=== PATIENT | female | born 1960 | race Caucasian/White ===

== ENCOUNTER 2017-02-04 13:18 | Emergency (ER) | payer BC ==
[~2017-02-04] VITALS: Ht 160 cm; Wt 56.0 kg
[2017-02-04 13:21] VITALS: Ht 160 cm; Wt 56.0 kg
[2017-02-04] MEDS ORDERED: FER325 PO ×2 (13:42→13:46)
[2017-02-04] MEDS ORDERED: SILD20TA PO (13:46)
[2017-02-04] MEDS ORDERED: TREP1.743 INHALATION (13:46)
[2017-02-04] MEDS ORDERED: MACI10TA PO (13:46)
[2017-02-04] MEDS ORDERED: DIGO250T16 PO (13:46)
[2017-02-04] MEDS ORDERED: PRAV40TA76 PO (13:46)
[2017-02-04] MEDS ORDERED: LISI2.5T59 PO (13:46)
[2017-02-04] MEDS ORDERED: APIX5TAB PO (13:46)
[2017-02-04] MEDS ORDERED: FURO40TA4 PO (13:46)
[2017-02-04] MEDS ORDERED: SUCR1TAB56 PO (13:46)
[2017-02-04] MEDS ORDERED: ASPI-664 PO (13:46)
[2017-02-04 13:47] LABS: ADD SCAN DIFF NO; BASOPHILS % 0.4 % (0.0-2.0); EOSINOPHILS % 0.7 % (0.0-7.0); HEMATOCRIT 37.4 % (37.0-47.0); HEMOGLOBIN 12.1 g/dl (12.0-16.0); LYMPHOCYTES # 1.6 10^3/ul (0.8-2.9); MEAN CORPUSCULAR HEMOGLOBIN 25.5 pg (29.0-33.0); MEAN CORPUSCULAR HGB CONC 32.4 g/dl (32.0-37.0); MEAN CORPUSCULAR VOLUME 78.9 fl (82.0-101.0); MEAN PLATELET VOLUME 9.8 fl (7.4-10.4); MONOCYTE # 0.4 10^3/ul (0.3-0.9); MONOCYTES % 6.5 % (0.0-11.0); NEUTROPHIL # 3.5 10^3/ul (1.6-7.5); NEUTROPHILS % 63.3 % (39.0-77.0); PLATELET COUNT 313 10^3/UL (140-415); RED BLOOD COUNT 4.74 10^6/ul (4.20-5.40); RED CELL DISTRIBUTION WIDTH 15.6 % (11.5-14.5); WHITE BLOOD COUNT 5.5 10^3/ul (4.8-10.8)
--- NOTE | 2017-02-04 13:57 | ERA ---
ER Documentation Chief Complaint Date/Time DATE: 02/04/17 TIME: 13:55 Chief Complaint bib [id number] c/o cp and abd pain with sob denies n/v/d HPI 56-year-old female. Divehi speaking, and wheel loader operator used on the phone. The patient verbalizes shortness of breath, lightheadedness and dizziness. Patient states that she was recently hospitalized at [facility]. She has paperwork that suggests she was admitted for A. fib with pulmonary hypertension. The patient describes persistent symptoms and was just discharged proximally 1 week ago. She denies any chest pain, no pleuritic pain , it was noted that that she has abdominal pain but she denies this currently. She is feeling somewhat anxious and had paresthesias to bilateral upper extremities. These are resolved. Remainder of HPI is somewhat limited given language barrier. ROS All systems reviewed and are negative except as per history of present illness. Medications Home Meds Reported Medications Ferrous Sulfate* (Ferrous Sulfate*) 325 Mg Tabec, 325 MG PO DAILY, TAB 02/04/17 Treprostinil (Tyvaso) 1.74 Mg/2.9 Ml Ampul.neb, 3 INH INHALATION QID, EA 02/04/17 Pravastatin Sodium* (Pravastatin Sodium*) 40 Mg Tablet, 40 MG PO HS, TAB 02/04/17 Aspirin* (Aspirin* (EC)) 81 Mg Tablet.dr, 81 MG PO DAILY, TAB 02/04/17 Apixaban* (Eliquis*) 5 Mg Tablet, 5 MG PO BID, TAB 02/04/17 Furosemide* (Furosemide*) 40 Mg Tablet, 40 MG PO DAILY, TAB 02/04/17 Sucralfate* (Carafate*) 1 Gm Tab, 1 GM PO TID, TAB 02/04/17 Digoxin* (Digox*) 250 Mcg Tablet, 0.25 MG PO DAILY, TAB 02/04/17 Sildenafil Citrate* (Sildenafil Citrate*) 20 Mg Tablet, 20 MG PO TID, TAB 02/04/17 Lisinopril* (Lisinopril*) 2.5 Mg Tablet, 2.5 MG PO DAILY, #30 TAB 02/04/17 Macitentan (Opsumit) 10 Mg Tablet, 10 MG PO DAILY, TAB 02/04/17 Ferrous Sulfate* (Ferrous Sulfate*) 325 Mg Tabec, 325 MG PO DAILY, TAB 02/04/17 FmHx Family History: No diabetes Physical Exam Vitals Vital Signs Date Time Temp Pulse Resp B/P Pulse Ox O2 Delivery O2 Flow Rate FiO2 02/04/17 15:06 73 113/67 02/04/17 14:08 Nasal Cannula 2 02/04/17 13:21 97.7 57 20 127/60 100 Physical Exam General: Well developed, well nourished, no acute distress Head: Normocephalic, atraumatic. Eyes: Pupils equally reactive, EOM intact ENT: Moist mucous membranes Neck: Supple, no lymphadenopathy Respiratory: Scant rales at the bases bilaterally no distress Cardiovascular: RRR, no murmurs, rubs, or gallops Abdominal: Soft, non-tender, non-distended, no peritoneal signs : Deferred MSK: No edema, no unilateral swelling, 5/5 strength Neurologic: Alert and oriented, moving all extremities, normal speech, no focal weakness, no cerebellar signs Skin: No rash Psych: Slightly anxious Result Diagram: 02/04/17 1340 02/04/17 1340 Results 24 hrs Laboratory Tests Test 02/04/17 13:40 White Blood Count 5.510^3/ul Red Blood Count 4.7410^6/ul Hemoglobin 12.1g/dl Hematocrit 37.4% Mean Corpuscular Volume 78.9fl Mean Corpuscular Hemoglobin 25.5pg Mean Corpuscular Hemoglobin Concent 32.4g/dl Red Cell Distribution Width 15.6% Platelet Count 51809^3/UL Mean Platelet Volume 9.8fl Neutrophils % 63.3% Lymphocytes % 28.0% Monocytes % 6.5% Eosinophils % 0.7% Basophils % 0.4% Nucleated Red Blood Cells % 0.0/100WBC Neutrophils # 3.510^3/ul Lymphocytes # 1.610^3/ul Monocytes # 0.410^3/ul Eosinophils # 0.010^3/ul Basophils # 0.010^3/ul Nucleated Red Blood Cells # 0.010^3/ul Prothrombin Time 13.1Sec Prothrombin Time Ratio 1.0 INR International Normalized Ratio 0.99 Activated Partial Thromboplast Time 30.3Sec Sodium Level 144mmol/L Potassium Level 3.5mmol/L Chloride Level 104mmol/L Carbon Dioxide Level 22mmol/L Anion Gap 22 Blood Urea Nitrogen 14mg/dl Creatinine 0.70mg/dl Glucose Level 110mg/dl Calcium Level 9.8mg/dl Total Bilirubin 0.5mg/dl Direct Bilirubin 0.00mg/dl Indirect Bilirubin 0.5mg/dl Aspartate Amino Transf (AST/SGOT) 26IU/L Alanine Aminotransferase (ALT/SGPT) 32IU/L Alkaline Phosphatase 86IU/L Troponin I 0.017ng/ml B-Type Natriuretic Peptide 498PG/ML Total Protein 8.3g/dl Albumin 4.7g/dl Globulin 3.60g/dl Albumin/Globulin Ratio 1.30 Procedures/MDM EKG, MONITORS, & DIAGNOSTIC IMAGING: EKG: I reviewed and interpreted a 12-lead EKG. Rhythm: a fib, rate controlled Ectopy: None Intervals: No abnormalities ST segments: No elevations or depressions T waves: No contiguous inversions Chest x-ray: I reviewed and interpreted a 1 view of the chest Mediastinum: No enlargement Cardiac silhouette: No cardiomegaly Airspace: Clear lung vann bilaterally without evidence of pneumothorax Bones: No evidence of fracture LAB INTERPRETATION: Borderline BNP, negative troponin MEDICAL DECISION MAKING: The patient has a history of A. fib, anticoagulated on Eliquis, pulmonary hypertension taking sildenafil who presents with shortness of breath. This is likely an exacerbation of the patient's pulmonary hypertension. No evidence of respiratory failure significant respiratory distress. Anxiety, may be playing a role in her presentation as well. No evidence of pulmonary embolism, dissection, pneumothorax. The patient has a benign abdominal exam and I believe the report of abdominal pain was secondary to language. She denies this currently. ER COURSE: The patient is resting comfortably. Given her likely exacerbation of pulmonary hypertension. The patient will be hospitalized for further management. She is capitated to [facility] and is stable for transfer. The risks, benefits, alternatives were discussed with family member who speaks Nepali. I kept the patient and/or family informed of laboratory and diagnostic imaging results throughout the emergency room course. DISPOSITION PLAN: Telemetry admission for management of shortness of breath in the setting of A. fib, pulmonary hypertension CONSULTATION: Accepting care team and consultations: I discussed the current laboratory data, diagnostic imaging and emergency care provided. Admitting team: Dr. Madsen Admitting team indication: Insurance directed Departure Diagnosis: Primary Impression: Pulmonary hypertension Additional Impression: Shortness of breath Condition: Stable DIALLO FELICIANO MD Feb 04, 2017 13:57
[2017-02-04 14:05] LABS: INR 0.99; PARTIAL THROMBOPLASTIN TIME 30.3 Sec (25.0-35.0); PROTIME 13.1 Sec (12.2-14.2)
[2017-02-04 14:09] LABS: ALBUMIN 4.7 g/dl (3.3-4.9); ALBUMIN/GLOBULIN RATIO 1.3; BILIRUBIN,INDIRECT 0.5 mg/dl (0-1.1); BILIRUBIN,TOTAL 0.5 mg/dl (0.2-1.3); CALCIUM 9.8 mg/dl (8.4-10.2); CREATININE 0.7 mg/dl (0.44-1.00); POTASSIUM 3.5 mmol/L (3.5-5.1); TOTAL PROTEIN 8.3 g/dl (6.1-8.1)
[2017-02-04 14:20] LABS: TROPONIN-I 0.017 ng/ml (0.00-0.12)
--- NOTE | 2017-02-04 14:29 | RADRPT ---
PROCEDURE: Chest x-ray CLINICAL INDICATION: Chest pain TECHNIQUE: Chest single view COMPARISON: None FINDINGS: The heart is normal in size. The pulmonary vessels are normal in caliber. The lungs are clear. Th e costophrenic angles are sharp. The visualized bony thorax is unremarkable. IMPRESSION: No acute cardiopulmonary disease. RPTAT: HH .Boom Chavez MD, Date Time Electronically viewed and signed by .Boom Chavez MD, MD on 02/04/2017 14:29 .W/
[2017-02-04 17:25] VITALS: BP 104/50; PULSE 61; RESP 15; TEMP 97.8
== END 2017-02-04 20:05 | disposition home or self-care (01) ==
LOC: E/R 13:18
DX: I27.2 Other secondary pulmonary hypertension (principal); R40.2142 Coma scale, eyes open, spontaneous, at arrival to emergency department; R40.2252 Coma scale, best verbal response, oriented, at arrival to emergency department; R40.2362 Coma scale, best motor response, obeys commands, at arrival to emergency department; Z79.82 Long term (current) use of aspirin
CPT/HCPCS: 36415; 71010; 80053; 83880; 84484; 85025; 85610; 85730; 93005

== ENCOUNTER 2017-04-06 08:04 | Emergency (ER) | payer BC ==
[~2017-04-06] VITALS: Ht 165.1 cm; Wt 67.5 kg
[~2017-04-06 08:04] MED LIST: APIX5TAB PO; ASPI-664 PO; DIGO250T16 PO; FER325 PO; FURO40TA4 PO; LISI2.5T59 PO; MACI10TA PO; PRAV40TA76 PO; SILD20TA PO; SUCR1TAB56 PO; TREP1.743 INHALATION
[2017-04-06 08:14] VITALS: Ht 165.1 cm; Wt 67.5 kg
[2017-04-06] MEDS: HYDROCODONE/APAP (5/325) TAB PO ONE ×2 (09:44→09:46)
[2017-04-06 10:15] LABS: BASOPHILS % 0.7 % (0.0-2.0); EOSINOPHILS # 0.1 10^3/ul (0.0-0.5); EOSINOPHILS % 1.7 % (0.0-7.0); HEMATOCRIT 35.7 % (37.0-47.0); HEMOGLOBIN 11.7 g/dl (12.0-16.0); LYMPHOCYTES # 1.4 10^3/ul (0.8-2.9); LYMPHOCYTES % 35.3 % (15.0-51.0); MEAN CORPUSCULAR HGB CONC 32.8 g/dl (32.0-37.0); MEAN CORPUSCULAR VOLUME 82.3 fl (82.0-101.0); MEAN PLATELET VOLUME 10.4 fl (7.4-10.4); MONOCYTE # 0.4 10^3/ul (0.3-0.9); MONOCYTES % 8.9 % (0.0-11.0); NEUTROPHILS % 53.2 % (39.0-77.0); PLATELET COUNT 298 10^3/UL (140-415); RED BLOOD COUNT 4.34 10^6/ul (4.20-5.40); RED CELL DISTRIBUTION WIDTH 14.3 % (11.5-14.5); WHITE BLOOD COUNT 4.1 10^3/ul (4.8-10.8)
[2017-04-06 10:29] LABS: ADD UMIC YES; UR ASCORBIC ACID NEGATIVE (NEGATIVE); UR BILIRUBIN (Dip) NEGATIVE (NEGATIVE); UR BLOOD (Dip) 2+ mg/dL (NEGATIVE); UR CLARITY CLEAR (CLEAR); UR COLOR COLORLESS (YELLOW); UR GLUCOSE (Dip) NEGATIVE (NEGATIVE); UR KETONES (Dip) NEGATIVE (NEGATIVE); UR LEUKOCYTE ESTERASE (Dip) NEGATIVE Leu/ul (NEGATIVE); UR NITRITE (Dip) NEGATIVE (NEGATIVE); UR RBC 24 /HPF (0-5); UR SPECIFIC GRAVITY (Dip) 1.005 (1.003-1.030); UR TOTAL PROTEIN (Dip) NEGATIVE (NEGATIVE); UR UROBILINOGEN (Dip) NEGATIVE (NEGATIVE)
--- NOTE | 2017-04-06 10:39 | ERD ---
ER Documentation Chief Complaint Date/Time DATE: 04/06/17 TIME: 10:34 Chief Complaint Complains of vag bleed x 2 days HPI This is a 56-year-old female who presents the emergency department today complaining of vaginal bleeding for the past 3 days. States that her last menstrual period was in December 22, 2015. States in September 2016 she had 10 days of bleeding. States that March 29 she did have catheter down her right thigh for cardiology purposes. She does currently have beth placed. States that she has an appointment on April 07 for follow-up with her digital program manager. States she had some mild pain, denies any fevers or chills. states that he wants "medicine to make her stop bleeding" states that she saw her ladderman when this happened back in September and an ultrasound was done and everything was normal. ROS All systems reviewed and are negative except as per history of present illness. Medications Home Meds Reported Medications Ferrous Sulfate* (Ferrous Sulfate*) 325 Mg Tabec, 325 MG PO DAILY, TAB 02/04/17 Treprostinil (Tyvaso) 1.74 Mg/2.9 Ml Ampul.neb, 3 INH INHALATION QID, EA 02/04/17 Pravastatin Sodium* (Pravastatin Sodium*) 40 Mg Tablet, 40 MG PO HS, TAB 02/04/17 Aspirin* (Aspirin* (EC)) 81 Mg Tablet.dr, 81 MG PO DAILY, TAB 02/04/17 Apixaban* (Eliquis*) 5 Mg Tablet, 5 MG PO BID, TAB 02/04/17 Furosemide* (Furosemide*) 40 Mg Tablet, 40 MG PO DAILY, TAB 02/04/17 Sucralfate* (Carafate*) 1 Gm Tab, 1 GM PO TID, TAB 02/04/17 Digoxin* (Digox*) 250 Mcg Tablet, 0.25 MG PO DAILY, TAB 02/04/17 Sildenafil Citrate* (Sildenafil Citrate*) 20 Mg Tablet, 20 MG PO TID, TAB 02/04/17 Lisinopril* (Lisinopril*) 2.5 Mg Tablet, 2.5 MG PO DAILY, #30 TAB 02/04/17 Macitentan (Opsumit) 10 Mg Tablet, 10 MG PO DAILY, TAB 02/04/17 Ferrous Sulfate* (Ferrous Sulfate*) 325 Mg Tabec, 325 MG PO DAILY, TAB 02/04/17 Allergies Allergies: Coded Allergies: No Known Allergy (Unverified , 04/06/17) PMhx/Soc History of Surgery: No Anesthesia Reaction: No Hx Neurological Disorder: No Hx Respiratory Disorders: No Hx Cardiac Disorders: Yes (a fib) Hx Psychiatric Problems: No Hx Miscellaneous Medical Probl: No Hx Alcohol Use: No Hx Substance Use: No Hx Tobacco Use: No Smoking Status: Never smoker Physical Exam Vitals Vital Signs Date Time Temp Pulse Resp B/P Pulse Ox O2 Delivery O2 Flow Rate FiO2 04/06/17 13:57 98.5 72 20 155/101 96 Room Air 04/06/17 08:14 98.2 56 20 131/60 98 Physical Exam Const: NAD Head: Atraumatic Eyes: Normal Conjunctiva ENT: Normal External Ears, Nose and Mouth. Neck: Full range of motion..~ No meningismus. Resp: Clear to auscultation bilaterally Cardio: Regular rate and rhythm, no murmurs Abd: Soft, mild pelvic tenderness non distended. Normal bowel sounds. No tenderness at [place] Skin: No petechiae or rashes Back: No midline or flank tenderness Ext: No cyanosis, or edema Neur: Awake and alert Psych: Normal Mood and Affect Result Diagram: 04/06/17 1000 04/06/17 1000 Results 24 hrs Laboratory Tests Test 04/06/17 09:20 04/06/17 10:00 Urine Color COLORLESS Urine Clarity CLEAR Urine pH 8.0 Urine Specific [place] 1.005 Urine Ketones NEGATIVEmg/dL Urine Nitrite NEGATIVEmg/dL Urine Bilirubin NEGATIVEmg/dL Urine Urobilinogen NEGATIVEmg/dL Urine Leukocyte Esterase NEGATIVELeu/ul Urine Microscopic RBC 24/HPF Urine Microscopic WBC 1/HPF Urine Hemoglobin 2+mg/dL Urine Glucose NEGATIVEmg/dL Urine Total Protein NEGATIVEmg/dl White Blood Count 4.110^3/ul Red Blood Count 4.3410^6/ul Hemoglobin 11.7g/dl Hematocrit 35.7% Mean Corpuscular Volume 82.3fl Mean Corpuscular Hemoglobin 27.0pg Mean Corpuscular Hemoglobin Concent 32.8g/dl Red Cell Distribution Width 14.3% Platelet Count 72244^3/UL Mean Platelet Volume 10.4fl Neutrophils % 53.2% Lymphocytes % 35.3% Monocytes % 8.9% Eosinophils % 1.7% Basophils % 0.7% Nucleated Red Blood Cells % 0.0/100WBC Neutrophils # (Manual) 2.210^3/ul Lymphocytes # 1.410^3/ul Monocytes # 0.410^3/ul Eosinophils # 0.110^3/ul Basophils # 0.010^3/ul Nucleated Red Blood Cells # 0.010^3/ul Sodium Level 141mmol/L Potassium Level 4.0mmol/L Chloride Level 105mmol/L Carbon Dioxide Level 27mmol/L Anion Gap 13 Blood Urea Nitrogen 15mg/dl Creatinine 0.71mg/dl Glucose Level 94mg/dl Calcium Level 9.1mg/dl Total Bilirubin 0.2mg/dl Direct Bilirubin 0.00mg/dl Indirect Bilirubin 0.2mg/dl Aspartate Amino Transf (AST/SGOT) 23IU/L Alanine Aminotransferase (ALT/SGPT) 26IU/L Alkaline Phosphatase 74IU/L Total Protein 7.2g/dl Albumin 3.8g/dl Globulin 3.40g/dl Albumin/Globulin Ratio 1.11 Beta HCG, Quantitative < 2.4mIU/ml Current Medications Medications (Trade) Dose Ordered Sig/Vane Route PRN Reason Start Time Stop Time Status Last Admin Dose Admin Acetaminophen/ Hydrocodone Bitart ([place] (5/325)) 1 tab ONCE ONCE PO 04/06/17 09:30 04/06/17 09:31 DC DIAGNOSTIC IMAGING REPORT Patient: BRAYDEN HARRIS : 1960 Age: 56 Sex: F MR #: [id number] DOS: 04/06/17 0000 Ordering MD: GRACE DIAZ PA-C Location: E Room/Bed: PROCEDURE: Pelvic ultrasound. CLINICAL INDICATION: Vaginal bleeding for 3 days. TECHNIQUE: Charles scale, color doppler, spectral doppler ultrasound of the pelvis was performed with transabdominal and transvaginal transducers. COMPARISON: Pelvic ultrasound 11/15/2016. CT abdomen/pelvis 04/23/2016. FINDINGS: Uterus Size: 9.6 x 4.9 x 5.9 cm (145 cc) Position: Anteverted. Echogenicity: Heterogeneous. Lesions: 2.0 cm submucosal fibroid, which is grossly unchanged in size when remeasured at corresponding anatomic level. Smaller fibroids of the uterine fundus and ventral uterine body on prior CT are not seen on current ultrasound. Cervix: Small Nabothian cysts. Endometrium: Thickness: 5-6 mm. Appearance: Normal. Lesions: Scattered few tiny subendometrial cysts are seen and unchanged. Right Ovary: Not visualized. Left Ovary: Not visualized. Adnexa: Masses: None. Free fluid: None. IMPRESSION: Enlarged heterogeneous uterus with scattered few tiny subendometrial cysts which can be seen with adenomyosis. The appearance of the uterus is unchanged from prior examinations. Small uterine fibroids, unchanged. RPTAT: [facility]ST .Lubna Barillas MD, MD Date Time Electronically viewed and signed by .Lubna Barillas MD, MD on 04/06/2017 11:22 .T/ CC: GRACE DIAZ PA-C Procedures/MDM Hl[employer] Interface Developer service used in Indonesian, Gaby Alvares, #[id number] This a 56-year-old female who presents to the emergency department today for vaginal bleeding for the past 3 days. This is happened to the patient previously and patient was seen by her COMBATANT DIVER OFFICER and everything was normal. was wanting me to give medication to make the patient stop bleeding. He also wanted me to call the ladderman, Jose Mohan. Laboratory workupShows no elevated white blood cell count. Her hemoglobin is mildly decreased at 11.7. Her electrolytes are within normal limits. Glucose within normal limits. Liver enzymes are within normal limits. UA is negative for infection test is negative US shows enlarged heterogeneous uterus with scattered few tiny subendometrial cysts which could be seen with adenomyosis. The appearance of the uterus is unchanged from M and CT abdomen and pelvis in April 2016. She has small uterine fibroids Patient symptoms at this time is consistent with fibroids and dysfunctional uterine bleeding. Patient is not significantly anemic and there is no indication for transfusion at this time. I have explained this multiple times to the patient. I did explain this to the patient through the fuse assembler at session number 95817 Patient indicated that she was taking several medications. This was not explained to me and I was not informed of this on patient's initial HPI. Patient is taking Eliquis and pravastatin, lisinopril, Lasix. Patient indicated that she is taking the Eliquis and aspirin for pulmonary hypertension and a "problem with lung pressure". Patient denied ever having a history of DVT or atrial fibrillation. Given that this could possibly contribute to patient's vaginal bleeding patient was instructed to stop taking Eliquis and aspirin for short period of time until she has further evaluation. Patient understood. I did place [address] Mohan I was notified by 's office staff that he was not in the office and was working in another hospital and because the patient has an HMO they would need referral from her primary care doctor back to the ladderman. I did explain this to the and patient and Patient' s was requesting that I called the PCP for an appointment given "their language barrier". I did place one call to patient's primary care doctor Dr. Interiano And was told that they would see the patient today and put in the referral today as long as I put a diagnosis and need for gynecology specialist on patient's discharge paperwork. This was done. This was also explained to the patient. Patient was explained in great detail her medical condition and possibilities for treatment. This was done by both myself and Dr. Resendez At this time the patient is stable for discharge and outpatient management. Patient should follow up with their PCP in the next 1-2 days. They may return to the emergency department sooner for any persistent or worsening of symptoms. Patient and understood and agreed with the plan. Departure Diagnosis: Primary Impression: Vaginal bleeding Additional Impression: Fibroids Uterine leiomyoma location: unspecified location Qualified Code: D25.9 - Uterine leiomyoma, unspecified location Condition: GRACE Lee PA-C Apr 06, 2017 10:39
[2017-04-06 10:53] LABS: ALBUMIN 3.8 g/dl (3.3-4.9); ALBUMIN/GLOBULIN RATIO 1.11; BILIRUBIN,INDIRECT 0.2 mg/dl (0-1.1); BILIRUBIN,TOTAL 0.2 mg/dl (0.2-1.3); CALCIUM 9.1 mg/dl (8.4-10.2); CREATININE 0.71 mg/dl (0.44-1.00); TOTAL PROTEIN 7.2 g/dl (6.1-8.1)
--- NOTE | 2017-04-06 11:22 | RADRPT ---
PROCEDURE: Pelvic ultrasound. CLINICAL INDICATION: Vaginal bleeding for 3 days. TECHNIQUE: Charles scale, color doppler, spectral doppler ultrasound of the pelvis was performed with transabdominal and transvaginal transducers. COMPARISON: Pelvic ultrasound 11/15/2016. CT abdomen/pelvis 04/23/2016. FINDINGS: Uterus Size: 9.6 x 4.9 x 5.9 cm (145 cc) Position: Anteverted. Echogenicity: Heterogeneous. Lesions: 2.0 cm submucosal fibroid, which is grossly unchanged in size when remeasured at correspo nding anatomic level. Smaller fibroids of the uterine fundus and ventral uterine body on prior CT ar e not seen on current ultrasound. Cervix: Small Nabothian cysts. Endometrium: Thickness: 5-6 mm. Appearance: Normal. Lesions:Scattered few tiny subendometrial cysts are seen and unchanged. Right Ovary:Not visualized. Left Ovary:Not visualized. Adnexa: Masses: None. Free fluid: None. IMPRESSION: Enlarged heterogeneous uterus with scattered few tiny subendometrial cysts which can be seen with ad enomyosis. The appearance of the uterus is unchanged from prior examinations. Small uterine fibroids, unchanged. RPTAT: HLST .Lubna Barillas MD, MD Date Time Electronically viewed and signed by .Lubna Barillas MD, on 04/06/2017 11:22 .T/
[2017-04-06 13:57] VITALS: BP 155/101; PULSE 72; RESP 20; TEMP 98.5
== END 2017-04-06 13:57 | disposition home or self-care (01) ==
LOC: FTE 08:04
DX: N93.9 Abnormal uterine and vaginal bleeding, unspecified (principal); D25.9 Leiomyoma of uterus, unspecified; Z79.82 Long term (current) use of aspirin
CPT/HCPCS: 36415; 76830; 76856; 80053; 81001; 84702; 85025; Z7502